=== PATIENT | male | born 1990 | race Caucasian/White ===

== ENCOUNTER 2019-06-11 10:17 | Emergency (ER) | payer MEDICAID ==
--- NOTE | 2019-06-11 12:15 | ED Physician Documentation ---
PD HPI MALE - Stated complaint Stated Complaint: MALE - Chief complaint Chief Complaint: Wound - History obtained from History obtained from: Patient - History of Present Illness Timing - onset: How many days ago (2-3) Timing - duration: Days (2-3) Timing - details: Abrupt onset (went from small bump to large tender swollen area in 2 days. Has not had similar. His girlfriend says she has had MRSA abscesses in the past, but no current infections.) Associated symptoms: Scrotal swelling (left posterior scrotum. No penile lesions.). No: Dysuria, Urinary frequency PD HPI MALE CONTRIB FACTORS: Sexually active. No: Exposed to STD Similar symptoms before: Has not had sx before Review of Systems Constitutional: reports: Myalgias. denies: Fever, Chills Throat: denies: Sore throat Respiratory: denies: Cough GI: denies: Abdominal Pain, Nausea, Vomiting : denies: Dysuria, Frequency, Discharge PD PAST MEDICAL HISTORY - Past Medical History Cardiovascular: None Respiratory: None Neuro: None Endocrine/Autoimmune: None - Present Medications Home Medications: Ambulatory Orders Medication Instructions Recorded Confirmed Doxycycline Monohydrate 100 mg PO BID #14 tablet 06/11/19 Naproxen 500 mg PO BID #20 tablet 06/11/19 Oxycodone HCl/Acetaminophen 1 each PO Q4H PRN #12 tablet 06/11/19 [Oxycodon-Acetaminophen 7.5-325] - Allergies Allergies/Adverse Reactions: Allergies Allergy/AdvReac Type Severity Reaction Status Date / Time Sulfa (Sulfonamide Allergy Hives Verified 06/11/19 10:31 Antibiotics) - Living Situation Living Situation: reports: With spouse/s.o. Living Arrangement: reports: At home - Social History Does the pt smoke?: Yes Does the pt drink ETOH?: Yes - Family History Family history: reports: Non contributory PD ED PE NORMAL - Vitals Vital signs reviewed: Yes - General General: Alert and oriented X 3, Well developed/nourished, Other (anxious) - HEENT HEENT: Pharynx benign - Neck Neck: Supple, no meningeal sign, No adenopathy - Cardiac Cardiac: RRR, No murmur - Respiratory Respiratory: Clear bilaterally - Abdomen Abdomen: Soft, Non tender - Male Male : [employer] present (his girlfriend was present), Other (left side posterior scrotal base with skin/soft tissue swelling/red/very tender with pointing and minimal drainage c/w abscess. The testicle and rest of scrotal sac without swelling. ) - Derm Derm: Normal color, Warm and dry Results - Vitals Vitals: Vital Signs - 24 hr 06/11/19 06/11/19 06/11/19 10:32 13:14 14:39 Temperature 37 C 37.2 C 36.7 C Heart Rate 107 H 99 86 Respiratory 18 16 12 Rate Blood Pressure 128/75 141/88 H 134/80 H O2 Saturation 96 98 98 Oxygen O2 Source Room air - Labs Labs: Microbiology 06/11/19 14:19 Wound Culture - Preliminary Scrotum Procedures - Abscess I&D (location) left posterior scrotum Preparation: Lidocaine 1%, With epi, LET Incision: Incised with scalpel, Purulent drainage, Irrigated, Culture obtained. No: Packed Other: Pt tolerated well (it hurt with the palpation to get fluid out; he was anxious prior to and during the procedure but his girlfriend provided moral support.), Dressing applied, Antibiotic prescribed PD MEDICAL DECISION MAKING - ED course Complexity details: re-evaluated patient, considered differential, d/w patient Departure - Departure Disposition: 01 Home, Self Care Clinical Impression: Scrotal wall abscess Condition: Stable Record reviewed to determine appropriate education?: Yes Instructions: ED Abscess IandD Prescriptions: Doxycycline Monohydrate 100 mg PO BID #14 tablet Naproxen 500 mg PO BID #20 tablet Oxycodone HCl/Acetaminophen [Oxycodon-Acetaminophen 7.5-325] 1 each PO Q4H PRN #12 tablet PRN Reason: Pain Comments: Warm soaks for this. Of area 3-4 times a day for the next day or 2 to promote further drainage from the abscess incision. The swelling should go down with that as well as antibiotics and anti-inflammatories. Doxycycline and naproxen as prescribed. Add Tylenol or oxycodone as needed for pain. Recheck if not improving well over the next couple of days and return sooner if worse. Discharge Date/Time: 06/11/19 14:47
[2019-06-11] MEDS ORDERED: IBUPROFEN 600 MG TABLET PO STA (12:29)
[2019-06-11] MEDS ORDERED: HYDROmorphone 2 MG/ML VIAL IM STA (12:29)
[2019-06-11] MEDS ORDERED: DOXYCYCLINE 100 MG TABLET PO STA (12:29)
[2019-06-11] MEDS ORDERED: LIDOCAINE-EPINEPH-TETRACAINE 3 ML SYRINGE TOP STA (12:29)
[2019-06-11 14:40] VITALS: BP 134/80
== END 2019-06-11 14:47 | disposition home or self-care (01) ==
LOC: ED 10:17
DX: N49.2 Inflammatory disorders of scrotum (principal)
CPT/HCPCS: 55100; 87070; 87181; 87205; 96374; 99283; 99284; A9270; J1170

== ENCOUNTER 2020-05-07 12:27 | Emergency (ER) | payer MEDICAID ==
[2020-05-07 12:43] VITALS: BP 126/78
[2020-05-07] MEDS ORDERED: PENICILLIN VK 250 MG TABLET PO STA (13:00)
[2020-05-07] MEDS ORDERED: HYDROcod/ACETAM 5/325 MG TABLET PO STA (13:00)
--- NOTE | 2020-05-07 13:02 | ED Physician Documentation ---
PD HPI HEENT - Stated complaint Stated Complaint: TOOTH PX - Chief complaint Chief Complaint: Heent - History obtained from History obtained from: Patient - Additional information Additional information: Severe dental pain from the left mandibular molar for the last day and a half. Is been about 2 years since he saw a dentist. No fevers. Review of Systems Constitutional: reports: Reviewed and negative Eyes: reports: Reviewed and negative Ears: reports: Reviewed and negative Nose: reports: Reviewed and negative Throat: reports: Reviewed and negative PD PAST MEDICAL HISTORY - Past Medical History Past Medical History: No Cardiovascular: None Respiratory: None Neuro: None Endocrine/Autoimmune: None GI: None : None HEENT: None Psych: ADD/ADHD Musculoskeletal: None Derm: None - Past Surgical History Past Surgical History: No - Present Medications Home Medications: Ambulatory Orders Medication Instructions Recorded Confirmed Doxycycline Monohydrate 100 mg PO BID #14 tablet 06/11/19 Naproxen 500 mg PO BID #20 tablet 06/11/19 Oxycodone HCl/Acetaminophen 1 each PO Q4H PRN #12 tablet 06/11/19 [Oxycodon-Acetaminophen 7.5-325] HYDROcod/ACETAM 5/325 [Welch 5/325] 1 - 2 tab PO Q6H PRN #10 tab 05/07/20 Ibuprofen [Motrin] 800 mg PO Q8H PRN #20 tab 05/07/20 Penicillin V Potassium 500 mg PO Q6HR #40 tab 05/07/20 - Allergies Allergies/Adverse Reactions: Allergies Allergy/AdvReac Type Severity Reaction Status Date / Time Sulfa (Sulfonamide Allergy Hives Verified 05/07/20 12:43 Antibiotics) - Social History Does the pt smoke?: Yes Smoking Status: Current every day smoker Does the pt drink ETOH?: Yes Does the pt have substance abuse?: Yes - Immunizations Immunizations are current?: No Immunizations: TDAP >10years/unknown - POLST Patient has POLST: No PD ED PE NORMAL - Vitals Vital signs reviewed: Yes - General General: Alert and oriented X 3, No acute distress - HEENT HEENT: PERRL, EOMI, Other ([place] teeth are still in situ. The left mandibular molar anterior to the wisdom tooth is carious down to the gumline with some purulent drainage. No sublingual edema, trismus, facial swelling.) - Neck Neck: Supple, no meningeal sign, No bony TTP - Neuro Neuro: Alert and oriented X 3, Normal speech Results - Vitals Vitals: Vital Signs - 24 hr 05/07/20 12:41 Temperature 36.0 C L Heart Rate 71 Respiratory 16 Rate Blood Pressure 126/78 O2 Saturation 100 Oxygen O2 Source Room air Departure - Departure Disposition: Home, Self Care Clinical Impression: Pain due to dental caries Condition: Good Record reviewed to determine appropriate education?: Yes Instructions: ED Tooth Pain Prescriptions: Penicillin V Potassium 500 mg PO Q6HR #40 tab Ibuprofen [Motrin] 800 mg PO Q8H PRN #20 tab PRN Reason: PAIN &/OR FEVER HYDROcod/ACETAM 5/325 [Welch 5/325] 1 - 2 tab PO Q6H PRN #10 tab PRN Reason: Pain Comments: It is very important that you follow-up with a dentist. When it comes to dental problems like yours, the emergency department can only offer a short-term solution to your long-term problem. A couple of low cost options for dental care include: [facility] in [place], calls [phone] for an appointment Or [facility] in [place], call [phone] for an appointment.
== END 2020-05-07 13:19 | disposition home or self-care (01) ==
LOC: ED 12:27
DX: K02.9 Dental caries, unspecified (principal); K08.89 Other specified disorders of teeth and supporting structures; F17.200 Nicotine dependence, unspecified, uncomplicated
CPT/HCPCS: 99283; A9270